=== PATIENT | male | born 1935 | race Caucasian/White ===

== ENCOUNTER → 2016-09-27 | Outpatient (CLI) | payer MEDICARE, BC ==
[2016-09-27 12:58] LABS: Cholesterol 153 mg/dL (<200); Glucose 98 mg/dL (74-99); HDL Cholesterol 41 mg/dL (40-60); Triglycerides 116 mg/dL (<150)
[2016-09-27 13:04] LABS: Prothrombin Time 18.9 sec (9.0-12.0)
== END | disposition home or self-care (01) ==
LOC: LABWHC1 11:46
PROVIDERS: ATTEND Internal Medicine Cardiovascular Disease
DX: E78.2 Mixed hyperlipidemia (principal); I34.0 Nonrheumatic mitral (valve) insufficiency; R73.01 Impaired fasting glucose; R06.02 Shortness of breath; Z51.81 Encounter for therapeutic drug level monitoring; Z79.01 Long term (current) use of anticoagulants
CPT/HCPCS: 36415; 80061; 82947; 83880; 85610

== ENCOUNTER → 2017-02-15 | Outpatient (CLI) | payer MEDICARE, BC ==
--- NOTE | 2017-02-15 15:18 | CONS ---
CONSULTATION DATE OF SERVICE: 02/15/2017 An 81-year-old gentleman who has been re-evaluated in the [facility] for obstructive sleep apnea-hypopnea syndrome. HISTORY OF PRESENT ILLNESS/SLEEP-WAKE EVALUATION: Patient has been diagnosed with obstructive sleep apnea-hypopnea syndrome in 2010. At that time, apnea-hypopnea index 64.1. The lowest oxygen level desaturation to 68%. Since that time, patient was treated with positive air pressure. By my last notes in 2013, pressure was 10 cm of water. Patient continued to use his equipment every night for the whole night. According to him, he does not snore and practically does not wake up from sleep. His [place] Sleepiness Scale today is 0. PAST MEDICAL HISTORY: Positive for atrial fibrillation, hypertension, some difficulties with falling asleep. PAST SURGICAL HISTORY: None. SOCIAL HISTORY: Positive for smoking in the past; quit in 1978. Alcohol consumption, none at the present time are: FAMILY HISTORY: Basically mostly negative. His father overused some alcohol, that is what patient remembers. REVIEW OF SYSTEMS: Basically negative. Sometimes swelling of the legs. PHYSICAL EXAM: An 81-year-old gentleman without distress. BP 157/108, HR 97, RR 16, height 5, 10, weight 206, BMI 29.5, temperature 97.0, oxygen saturation at room air 95%. OROPHARYNX: Low position of soft palate. Slight restriction of nasal breathing. ABDOMEN: Slightly obese. EXTREMITIES: 1+ ankle edema. Neck Supple, no JVD. Thyroid is not palpable. LUNGS Clear to percussion and to auscultation. Good air exchange. No wheezing or rhonchi. HEART S1, S2 irregular. No murmurs, gallops, or rubs. CONTRACT NEGOTIATOR Awake, alert, and oriented X3. Cranial nerves 2 to 7 intact. There is no fasciculation or atrophy. noted. No focal deficits observed. IMPRESSION: 1. Obstructive sleep apnea-hypopnea syndrome, clinically most on control with treatment with positive air pressure now. 2. Overweight, close to obesity, body mass index 29.5. 3. Atrial fibrillation. 4. Hypertension. 5. Swelling of the legs. 6. Difficulties to initiate sleep. Recently he falls asleep fairly well. PLAN: 1. Continue treatment with positive air pressure every night for the whole night. 2. Watching weight. 3. Sleep hygiene with regular time in bed for at least 8 hours. 4. No driving if feeling sleepiness. 5. Prescription for all necessary CPAP supplies including nasal mask, tube, filters. 6. We will check patient's PAP unit in the future to be sure that everything is working properly. Thank you very much for allowing me to participate in the management of your patient. Sincerely, Wesley Hutchinson MD, PhD, FAASM Diplomat of [employer] Bag Machine Helper [facility] [place] MMODL / IJN: [id number] /
== END ==
LOC: SLEEP 13:09
PROVIDERS: ATTEND Internal Medicine
DX: G47.33 Obstructive sleep apnea (adult) (pediatric) (principal); E66.3 Overweight; I48.91 Unspecified atrial fibrillation; I10 Essential (primary) hypertension; M79.89 Other specified soft tissue disorders; Z68.29 Body mass index [BMI] 29.0-29.9, adult; Z87.891 Personal history of nicotine dependence

== ENCOUNTER → 2017-02-27 | Outpatient (CLI) | payer MEDICARE, BC ==
[2017-02-27 16:17] LABS: Anion Gap 11 mmol/L; Blood Urea Nitrogen 19 mg/dL (9-20); Carbon Dioxide 24 mmol/L (22-30); Chloride 105 mmol/L (98-107); Non-African American GFR(MDRD) >60 (>60 ml/min/1.73 sqM); Potassium 4.7 mmol/L (3.5-5.1); Sodium 140 mmol/L (137-145)
== END | disposition home or self-care (01) ==
LOC: LABWHC1 15:11
PROVIDERS: ATTEND Internal Medicine Cardiovascular Disease
DX: I48.2 Chronic atrial fibrillation (principal); R06.02 Shortness of breath
CPT/HCPCS: 36415; 80051; 82565; 83880; 84520

== ENCOUNTER → 2017-08-02 | Outpatient (CLI) | payer MEDICARE, BC ==
[2017-08-02 15:02] LABS: Potassium 3.9 mmol/L (3.5-5.1)
== END | disposition home or self-care (01) ==
LOC: LABWHC1 14:03
PROVIDERS: ATTEND Internal Medicine Cardiovascular Disease
DX: I50.32 Chronic diastolic (congestive) heart failure (principal); I48.0 Paroxysmal atrial fibrillation
CPT/HCPCS: 36415; 80051; 82565; 83880; 84520

== ENCOUNTER → 2017-10-04 | Outpatient (CLI) | payer MEDICARE, BC ==
--- NOTE | 2017-10-04 13:26 | SFUN ---
SLEEP CENTER FOLLOW UP NOTE DATE OF SERVICE: 10/04/2017 This 82-year-old gentleman has been followed in sleep center for treatment of obstructive sleep apnea-hypopnea syndrome. Patient successfully continued to use his CPAP equipment every night for the whole night. I was not able to check his CPAP unit today, he just forgot it, but according to patient there is no problems. According to my records, the CPAP pressure is 10 cm of water. No snoring with CPAP. [place] Sleepiness Scale today is zero. PHYSICAL EXAMINATION: During physical exam, patient in no distress. VITAL SIGNS: BP 130/97, HR 88, RR 16, height 5 feet 9-1/2 inches, weight 195, BMI 28.3, temperature 97.4, oxygen saturation room air 95%. HEENT: PERRLA, EOMI. Oropharynx extremely low position of soft palate. NECK: Supple, no JVD. Thyroid is not palpable. LUNGS: Clear to percussion and to auscultation. Good air exchange. No wheezing or rhonchi. HEART: S1, S2 irregularly, irregular. ABDOMEN: Soft and nontender. Bowel sounds are present. No organomegaly appreciated. EXTREMITIES: 1+ bilateral ankle edema, but it is kind of minimal. INFORMATION TECHNOLOGY INSTRUCTOR: Awake, alert, and oriented X3. Cranial nerves 2 to 7 intact. There is no fasciculation or atrophy. noted. No focal deficits observed. IMPRESSION: 1. Obstructive sleep apnea-hypopnea syndrome. Patient successfully continuing to use his CPAP equipment, benefitting from treatment. 2. Atrial fibrillation. 3. Hypertension. 4. Minimal swelling of the legs. PLAN: 1. Continue treatment with CPAP every night. 2. Watching weight. 3. Sleep hygiene with regular time in bed for at least 8 hours. 4. No driving if feeling any sleepiness. 5. Prescription for all necessary CPAP supplies including mask, tube, filters. 6. We will check patient's CPAP unit, if necessary it will be replaced. Thank you very much for allowing me to participate in management of your patient. Sincerely, Wesley Hutchinson MD, PhD, FAASM Diplomat of [employer] [place] [facility] [place] MMODL / IJN: [id number] /
== END | disposition home or self-care (01) ==
LOC: SLEEP 11:08
PROVIDERS: ATTEND Internal Medicine
DX: G47.33 Obstructive sleep apnea (adult) (pediatric) (principal); I48.91 Unspecified atrial fibrillation; I10 Essential (primary) hypertension; M79.89 Other specified soft tissue disorders; Z99.89 Dependence on other enabling machines and devices

== ENCOUNTER → 2018-01-29 | Outpatient (CLI) | payer MEDICARE, BC ==
[2018-01-29 12:37] LABS: Anion Gap 10 mmol/L; Blood Urea Nitrogen 20 mg/dL (9-20); Carbon Dioxide 24 mmol/L (22-30); Chloride 106 mmol/L (98-107); Potassium 4.3 mmol/L (3.5-5.1); Sodium 140 mmol/L (137-145)
== END | disposition home or self-care (01) ==
LOC: LABWHC1 11:27
PROVIDERS: ATTEND Internal Medicine Cardiovascular Disease
DX: I50.32 Chronic diastolic (congestive) heart failure (principal); I48.0 Paroxysmal atrial fibrillation
CPT/HCPCS: 36415; 80051; 82565; 84520

== ENCOUNTER → 2019-01-16 | Outpatient (CLI) | payer MEDICARE, BC ==
--- NOTE | 2019-01-16 15:49 | PN ---
PROGRESS NOTE DATE OF SERVICE: 01/16/2019 This patient is an 83-year-old gentleman who has been followed in Sleep Center for treatment of obstructive sleep apnea-hypopnea syndrome. The patient is successfully continuing to use his CPAP equipment every night for the whole night. No snoring with CPAP. [place] Sleepiness Scale today is 2. Patient is receiving all his supplies on time. The heated humidifier in his machine does not work and the patient has some problems with dryness in the nose. MEDICATIONS: 1. Blood pressure. 2. Digoxin. 3. Warfarin. PHYSICAL EXAMINATION: GENERAL: A pleasant patient in no distress. VITAL SIGNS: BP 149/105 on the left arm. HR 92, RR 16, height 5 feet 10 inches, weight 196.2 pounds, which is 1 pound more than one year ago, temperature 98.0, oxygen saturation at room air 96%. HEENT: PERRLA, EOMI. Evaluation of oropharynx showed tongue protrudes midline. Low position of soft palate. Mallampati IV. NECK: Supple. No JVD. Thyroid is not palpable. LUNGS: Clear to percussion and to auscultation. Good air exchange. No wheezing or rhonchi. HEART: S1, S2 irregularly irregular. ABDOMEN: Obese. EXTREMITIES: No clubbing or cyanosis. BAR TACKER: Awake, alert, and oriented X3. Cranial nerves 2 to 7 intact. There is no fasciculation or atrophy. noted. No focal deficits observed. IMPRESSION: 1. Obstructive sleep apnea-hypopnea syndrome. The patient is successfully continuing to use his CPAP equipment, benefitting from treatment. Heated humidifier does not work in his machine. 2. Hypertension. 3. Atrial fibrillation. 4. History of significant periodic limb movements during the last sleep study; clinically no problems with his legs. PLAN: 1. Replace CPAP unit with a new one with a heated humidifier. 2. Patient will continue to use CPAP equipment every night for the whole night. 3. Sleep hygiene with regular time in bed for 7-1/2 hours. 4. Follow-up visit in one month after patient receives his new CPAP unit to check his compliance with treatment and make any necessary adjustments. CPAP pressure is 10 cm of water with nasal mask. Thank you very much for allowing me to participate in the management of your patient. Sincerely, Wesley Hutchinson MD, PhD, FAASM Diplomat of [employer] Assembler Seat [facility] [place] MMODL / QUANGN: [id number] /
== END ==
LOC: SLEEP 13:05
PROVIDERS: ATTEND Internal Medicine
DX: G47.33 Obstructive sleep apnea (adult) (pediatric) (principal); I10 Essential (primary) hypertension; I48.91 Unspecified atrial fibrillation; Z99.89 Dependence on other enabling machines and devices; Z79.01 Long term (current) use of anticoagulants; Z79.899 Other long term (current) drug therapy

== ENCOUNTER → 2019-01-23 | Outpatient (CLI) | payer MEDICARE, BC | LOC: LABWHC1 11:45 | PROVIDERS: ATTEND Internal Medicine Cardiovascular Disease | DX: E03.9 Hypothyroidism, unspecified (principal) | CPT/HCPCS: 36415; 84439; 84443; 84481 ==

== ENCOUNTER → 2019-03-06 | Outpatient (CLI) | payer MEDICARE, BC ==
--- NOTE | 2019-03-06 11:25 | SFUN ---
SLEEP CENTER FOLLOW UP NOTE DATE OF SERVICE: 03/06/2019 An 84-year-old gentleman who has been followed in the Sleep Center for treatment of obstructive sleep apnea-hypopnea syndrome. Recently we replaced his CPAP unit because his heated humidifier did not work. Patient is able to use CPAP equipment every night for the whole night. He likes his mask. No significant problems with sleep. [place] Sleepiness Scale is 1. I checked CPAP unit. CPAP pressure is 10 cm of water. Usage is 27 nights for more than 4 hours, out of the months with average usage is 7.6 hours per night. Apnea-hypopnea index 3.4, which is absolutely normal. MEDICATIONS: Digoxin, warfarin, metoprolol, labetalol. PHYSICAL EXAM: Patient in no distress, BP 138/106, HR 88, RR 16, height 5 foot, 10 inches, weight 205 pounds. Body mass index 29.5, temperature 97.5, oxygen saturation at room air 95%. OROPHARYNX: Extremely low soft palate, Mallampati 4. HEART: S1, S2. Regular: Neck Supple, no JVD. Thyroid is not palpable. LUNGS Clear to percussion and to auscultation. Good air exchange. No wheezing or rhonchi. ABDOMEN Soft and nontender. Bowel sounds are present. No organomegaly appreciated. EXTREMITIES No clubbing or cyanosis. MACHINIST APPRENTICE WOOD Awake, alert, and oriented X3. Cranial nerves 2 to 7 intact. There is no fasciculation or atrophy. noted. No focal deficits observed. IMPRESSION: 1. Obstructive sleep apnea-hypopnea syndrome. Patient demonstrated great compliance with treatment, benefitting from treatment with usage of new CPAP unit. 2. Hypertension. 3. Atrial fibrillation. 4. History of significant periodic limb movements. Clinically does not have any problems with the legs at night. PLAN: 1. Patient will continue to use CPAP equipment every night for the whole night with the same level of pressure 10 cm of water. 2. Sleep hygiene with regular time in bed for 7.5 hours. 3. Precautions related to driving. No driving if feeling sleepiness. 4. Continue to use chin strap. Patient has some leak probably open his mouth, but again, respiration is in normal range. 5. I will maintain all necessary prescriptions for CPAP supplies including nasal Mirage FX wide mask. 6. Followup appointment in 1 year or earlier if patient has any problems. Thank you very much for allowing me to participate in the management of your patient. Sincerely, Wesley Hutchinson MD, PhD, FAASM Diplomat of [place] [employer] [employer] Doughnut Machine Operator of [facility] [place] MMLEONILA / RICKY: [id number] /
== END | disposition home or self-care (01) ==
LOC: SLEEP 09:56
PROVIDERS: ATTEND Internal Medicine
DX: G47.33 Obstructive sleep apnea (adult) (pediatric) (principal); I10 Essential (primary) hypertension; I48.91 Unspecified atrial fibrillation; Z87.39 Personal history of other diseases of the musculoskeletal system and connective tissue; Z79.01 Long term (current) use of anticoagulants; Z79.84 Long term (current) use of oral hypoglycemic drugs; Z79.899 Other long term (current) drug therapy

== ENCOUNTER → 2024-11-20 | Outpatient (CLI) | payer MEDICARE, BC ==
[2024-11-20 19:56] LABS: INR 2.23 sec (0.93-1.11)
== END | disposition home or self-care (01) ==
LOC: LABWHC1 16:29
PROVIDERS: ATTEND Internal Medicine Cardiovascular Disease
DX: Z51.81 Encounter for therapeutic drug level monitoring (principal); Z79.01 Long term (current) use of anticoagulants
CPT/HCPCS: 36415; 85610

== ENCOUNTER → 2024-12-19 | Outpatient (CLI) | payer MEDICARE, BC ==
[2024-12-19 16:00] LABS: Anion Gap 11.70 mmol/L (4.00-12.00); Blood Urea Nitrogen 17.0 mg/dL (9.0-27.0); Carbon Dioxide 23.3 mmol/L (21.6-31.8); Chloride 106 mmol/L (96-109); Potassium 4.2 mmol/L (3.5-5.5); Sodium 141 mmol/L (135-145)
[2024-12-19 16:01] LABS: NT-Pro-B-Type Natriuretic Pept 507 pg/mL (0-450)
== END | disposition home or self-care (01) ==
LOC: LABWHC1 10:32
PROVIDERS: ATTEND Internal Medicine Cardiovascular Disease
DX: I10 Essential (primary) hypertension (principal); E78.2 Mixed hyperlipidemia; R06.02 Shortness of breath; E72.10 Disorders of sulfur-bearing amino-acid metabolism, unspecified; Z71.2 Person consulting for explanation of examination or test findings
CPT/HCPCS: 36415; 80051; 82565; 83880; 84520